=== PATIENT | male | born 1995 | race Two or more races ===

== ENCOUNTER 2022-11-04 00:51 | Emergency (ER) | payer MEDICAID, OTHER ==
[~2022-11-04] VITALS: Ht 190.5 cm; Wt 103.0 kg
[2022-11-04 01:52] VITALS: BP 111/102
[2022-11-04 03:01] LABS: Basophils # (auto) 0 10 ^3/uL (0-0.2); Basophils % (auto) 0.3 % (0.0-2.0); Eosinophils # (auto) 0.1 10 ^3/uL (0-0.8); Eosinophils % (auto) 0.9 % (0.0-7.0); Hematocrit 47.7 % (41.0-53.0); Hemoglobin 15.5 g/dL (13.5-17.5); Lymphocytes # (auto) 3.4 10 ^3/uL (0.4-5.4); Lymphocytes % (auto) 24.6 % (10.0-50.0); Mean Corpuscular Hemoglobin 28.2 pg (28.0-32.0); Mean Corpuscular Hgb Conc. 32.6 g/dL (32.0-36.0); Mean Corpuscular Volume 86.5 fL (80.0-100.0); Monocytes # (auto) 0.9 10 ^3/uL (0-1.3); Monocytes % (auto) 6.5 % (0.0-12.0); Neutrophils # (auto) 9.2 10 ^3/uL (1.6-8.6); Neutrophils % (auto) 67.7 % (37.0-80.0); Nucleated Red Blood Cells % 0.1 %; Red Blood Cells 5.51 10^6/uL (4.5-5.90); Red Cell Distribution Width 13.6 % (11.8-14.3); White Blood Cell 13.7 10^3/uL (4.4-10.8)
[2022-11-04] MEDS ORDERED: HYDROcodone-ACET 5/325MG TAB PO ONE ×2 (04:00→04:15)
[2022-11-04] MEDS ORDERED: HYDR-4902 PO (04:03)
[2022-11-04 07:25] LABS: Potassium 3.7 mmol/L (3.5-5.1)
[2022-11-04 07:32] LABS: Albumin 3.1 g/dL (3.4-5.0); BUN/Creatinine Ratio 14.9 (10.0-20.0); Bilirubin, Total 2.3 mg/dL (0.2-1.0); Calcium 8.9 mg/dL (8.5-10.1); Total Protein 7.9 g/dL (6.4-8.2)
[2022-11-04] MEDS ORDERED: LORazepam 2MG/ML-1ML VIAL ONE (07:42)
== END 2022-11-04 05:29 | disposition home or self-care (01) ==
LOC: ER 00:51
DX: S16.1XXA Strain of muscle, fascia and tendon at neck level, initial encounter (principal); S09.90XA Unspecified injury of head, initial encounter; S29.9XXA Unspecified injury of thorax, initial encounter; Z79.899 Other long term (current) drug therapy; V43.52XA Car driver injured in collision with other type car in traffic accident, initial encounter; Y93.89 Activity, other specified; Y92.89 Other specified places as the place of occurrence of the external cause; Y99.8 Other external cause status
CPT/HCPCS: 36415; 70450; 71250; 72125; 74176; 80053; 83690; 85025; 99284; J2060